=== PATIENT | female | born 1980 | race Caucasian/White ===

== ENCOUNTER 2017-07-01 06:02 | Day surgery (SDC) | payer MEDICAID ==
[2017-07-01 06:34] LABS: ADD MAN DIFF? NO
[2017-07-01 06:40] LABS: BASOPHILS % 0.5 % (0.0-2.0); EOSINOPHILS # 0.2 10^3/ul (0.0-0.5); EOSINOPHILS % 2.1 % (0.0-7.0); HEMATOCRIT 41.9 % (37.0-47.0); HEMOGLOBIN 14.3 g/dl (12.0-16.0); LYMPHOCYTES # 3.1 10^3/ul (0.8-2.9); LYMPHOCYTES % 38.3 % (15.0-51.0); MEAN CORPUSCULAR HEMOGLOBIN 29.8 pg (29.0-33.0); MEAN CORPUSCULAR HGB CONC 34.1 g/dl (32.0-37.0); MEAN CORPUSCULAR VOLUME 87.3 fl (82.0-101.0); MEAN PLATELET VOLUME 9.6 fl (7.4-10.4); MONOCYTE # 0.4 10^3/ul (0.3-0.9); MONOCYTES % 5.5 % (0.0-11.0); NEUTROPHIL # 4.3 10^3/ul (1.6-7.5); NEUTROPHILS % 53.3 % (39.0-77.0); PLATELET COUNT 285 10^3/UL (140-415); RED CELL DISTRIBUTION WIDTH 12.8 % (11.5-14.5)
[2017-07-01] MEDS ORDERED: MIDAZOLAM 1 MG/ML 2 ML INJ (07:26)
[2017-07-01] MEDS ORDERED: PROPOFOL 20 ML (07:26)
[2017-07-01] MEDS ORDERED: ROCURONIUM 50 MG INJ (07:26)
[2017-07-01] MEDS ORDERED: LIDOCAINE 1% (MDV) 20 ML INJ (07:26)
[2017-07-01] MEDS ORDERED: ONDANSETRON 4 MG INJ ×2 (07:48→09:20)
[2017-07-01] MEDS ORDERED: DEXAMETHASONE 4 MG/ML 1 ML INJ (07:48)
[2017-07-01] MEDS ORDERED: CEFAZOLIN 1 GM INJ (07:49)
[2017-07-01] MEDS ORDERED: ROPIVACAINE 0.2% 20 ML VIAL (08:02)
[2017-07-01] MEDS ORDERED: SUGAMMADEX SODIUM 200 MG/2 ML VIAL IV (08:30)
[2017-07-01] MEDS ORDERED: MEPERIDINE 25 MG INJ (09:13)
[2017-07-01] MEDS: HYDROmorphONE (0.2 MG/ML) 10ML SYG IV (09:19)
[2017-07-01] MEDS: MEPERIDINE 25 MG INJ IV (09:33)
[2017-07-01] MEDS: ONDANSETRON 4 MG INJ IV (09:33)
== END 2017-07-01 12:10 | disposition home or self-care (01) ==
LOC: SDS 06:02
DX: Z30.2 Encounter for sterilization (principal)
CPT/HCPCS: 58670; 85025; 86900; 86901